=== PATIENT | female | born 1995 | race Caucasian/White ===

== ENCOUNTER 2019-03-16 07:04 | Outpatient (CLI) | payer MEDICAID, SELFPAY ==
[2019-03-16 07:23] VITALS: BMI 35.6
[2019-03-16 07:25] VITALS: TEMP 36.7
[2019-03-16 07:39] VITALS: BP 114/72; PULSE 88
[2019-03-16 07:56] VITALS: BP 101/59; PULSE 96
[2019-03-16 08:26] VITALS: BP 104/66; PULSE 92
[2019-03-16 08:31] LABS: Bilirubin Urine Neg (NEGATIVE); Blood Urine Neg (Negative); Glucose Urine UA Norm (Normal); Ketones Urine Negative (Negative); Leukocyte Esterase Urine Negative (Negative); Nitrate Urine Negative (Negative); Protein Urine Neg (Negative); Urine Appearance SL Hazy (CLEAR); Urine Color Yellow (Yellow); Urobilinogen Urine Norm (Negative)
[2019-03-16 08:36] LABS: Add Urine Culture? No; Bacteria Urine 1+; Mucus Urine TRACE; RBC Urine 0-4 /hpf (0-2); Squamous Epithelial Cell Urine 0-4 (0-5)
[2019-03-16 08:47] VITALS: BP 115/69; PULSE 93
[2019-03-16 09:05] VITALS: BP 115/69; PULSE 93
== END 2019-03-16 08:55 | disposition home or self-care (01) ==
LOC: OPOB 07:14 → OBGYN 08:48 → OPOB 03-17 07:45
PROVIDERS: Family Provider Family Medicine; Visit Provider Family Medicine
DX: O26.899 Other specified pregnancy related conditions, unspecified trimester (principal); Z3A.00 Weeks of gestation of pregnancy not specified; R10.9 Unspecified abdominal pain
CPT/HCPCS: 59025; 81001; 99211

== ENCOUNTER 2019-03-30 04:57 | Inpatient (IN) | payer MEDICAID, SELFPAY ==
[2019-03-30] VITALS (28 sets, daily range): BP systolic 86–121; BP diastolic 44–77; PULSE 67–99; RESP 16–20; TEMP 36.3–37.1; O2SAT 96–100; BMI 35.6
[2019-03-30 06:04] LABS: Basophils % 0.4 %; Eosinophils # 0.1 10^3/uL (0.0-0.8); Eosinophils % 1.3 %; Hematocrit 34.2 % (37.0-47.0); Hemoglobin 10.9 g/dL (11.5-15.3); Lymphocytes # 1.7 10^3/uL (0.8-4.8); Lymphocytes % 22.3 %; Mean Corpuscular HGB Conc 31.9 g/dL (30.0-36.0); Mean Corpuscular Hemoglobin 27.7 pg (28.0-34.0); Mean Platelet Volume 11.6 fL (7.4-10.4); Monocytes # 0.5 10^3/uL (0.2-0.9); Monocytes % 6.9 %; Neutrophils # 5.1 10^3/uL (1.8-7.7); Nucleated Red Blood Cells % 0 %; Platelet Count 210 10^3/cmm (130-400); Red Blood Count 3.93 10^6/uL (4.1-5.3); White Blood Count 7.5 10^3/uL (4.0-10.0)
[2019-03-30] MEDS: citric acid-sodium citrate 30 mL UDC PO (06:52)
[2019-03-30] MEDS: metoclopramide 5 mg/mL SDV 2 mL 10 MG IVP (06:52)
[2019-03-30] MEDS: famotidine 20 mg/2 mL INJ IVP (06:52)
--- NOTE | 2019-03-30 07:11 | P.HP_ITS ---
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 Her was unremarkable. Her labs were also unremarkable. Her blood type is a positive. She is rubella immune. She was GBS negative. Her glucose screen was negative. Labs Rubella: Immune RPR: Negative GBS: Negative Review of Systems General: Reports: 10 or more systems reviewed and unremarkable except in HPI and below Const: Reports: fatigue; Denies: fever Eyes: Denies: change in vision Card: Denies: chest pain Musc: Reports: back pain Gio/Lymph: Denies: easy bruising Medications/Allergies Home Medications Medication Instructions Recorded Confirmed Last Taken Type ferrous sulfate 1 mg PO DAILY 03/30/19 03/30/19 03/29/19 12:00 History vit [id number] 1 tab PO DAILY 03/30/19 03/30/19 03/29/19 12:00 History [ Vitamin] Allergies Allergy/AdvReac Type Severity Reaction Status Date / Time No Known Allergies Allergy Verified 03/30/19 06: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 Surgical History (Updated 03/30/19 @ 07:14 by Rober Bolton MD) Previous section Social History (Updated 03/30/19 @ 07:15 by Rober Bolton MD) Smoking and tobacco status: never smoked Alcohol intake: never Substance/Drug Use: never Household members: spouse and children Vitals/I&O/Wt Last Vital Signs Temp 98.6 F 03/30/19 05:45 Resp 20 H 03/30/19 05:45 Weight last 48 hrs Weight 189 lb Physical Exam Const: COMMON NORMALS: oriented x3 and alert HENMT: COMMON NORMALS: moist oral mucous membranes HEAD & SCALP: normal to inspection Chest: COMMONS NORMALS: inspection of chest normal Resp: COMMON NORMALS: clear to auscultation bilaterally AUSCULTATION: clear to auscultation bilaterally Cardio: COMMON NORMALS: regular rate and regular rhythm RATE: regular rate RHYTHM: regular rhythm GI: INSPECTION: Yes normal to inspection and Yes other (Gravid) Extremity: COMMON NORMALS: normal to inspection GENERAL: Yes edema (Trace) Neuro: COMMON NORMALS: oriented x3, moves all extremities and no sensory deficits noted SENSORIUM/ORIENTATION: Yes alert Psych: COMMON NORMALS: mental status grossly normal Skin: COMMON NORMALS: no rashes or lesions noted GENERAL SKIN EXAM: no rashes or lesions noted Data : 03/30/19 21:53 A&P Assessment and plan (1) 39 weeks gestation of : The patient presents for a repeat section. We discussed the risks of bleeding, infection, and damage to intra-abdominal organs. We are still working out the exact time of the due to a scheduling snafu with anesthesia. Status: Acute Code(s): Z3A.39 - 39 weeks gestation of Attestations Medical Necessity Statement*: I anticipate routine and post C- section care. Coding Level of Care Code Acute [employer] for [facility] Fwd Exam Detailed Diagnoses 39 weeks gestation of Z3A.39
--- NOTE | 2019-03-30 10:08 | PM.OP ---
Operative Report Date of procedure: March 30, 2019 Pre-op Diagnosis: IUP, previous lower transverse section, 39 weeks EGA Post-op diagnosis: same Procedure Done: Lower transverse section Specimens removed/disposition: 1. Male with a weight of 9 pounds 8 ounces and Apgars of 8 and 9 2. Placenta with a three-vessel cord delivered intact Complications: None Condition: stable Brief History: Refer to history and physical Procedure: The patient was brought back to the operating room where she was prepped and draped in usual sterile fashion. Anesthesia was found to be adequate. A lower transverse skin incision was then made with a #10 blade. I then dissected down to the underlying subcutaneous tissue until arriving at the prerectal fascia. The fascia was then nicked with the scalpel bilaterally. The fascial incisions were then carried laterally with Jett scissors. Attention was then turned to the superior aspect of the incision which was grasped with kochers and tented up away from the underlying rectus abdominis muscles. The muscles were then dissected away from the fascia manually, and later with Jett scissors. Attention was then turned to the inferior aspect of the incision, and the fascia was dissected away from the underlying muscle in similar fashion. The rectus abdominis muscles were then spread manually. The peritoneum was entered manually. Excellent visualization of the uterus was noted. A lower transverse uterine incision was then made with a #10 blade. Upon arriving at the intrauterine cavity, the uterine incision was then extended manually. The infant was noted to be in vertex position. Due to the large size of the head, I difficulty delivering the baby. As result I use a a soft cup Kiwi vacuum. The baby was delivered about 30 seconds after placing the vacuum on the infant's head. After delivery of the head, the mouth and nose were suctioned at the site of the incision. There was no meconium. There was no nuchal cord. The remainder of the body was then delivered and placed on the abdomen. The cord was cut and clamped. The baby was then handed to the waiting nurse. The placenta was removed intact. The uterus was externalized. The intrauterine cavity was cleansed of any remaining debris. The uterine incision was reapproximated in 2 layers. The first layer was performed with 0 Vicryl in a running locked stitch. The second layer was an imbricating stitch also using 0 Vicryl. The uterus was replaced into the abdomen. The peritoneum was then irrigated with warm saline. I reexamined the uterine incision and found it to be hemostatic. The rectus abdominis muscles were then reapproximated using 0 Vicryl in a running stitch. The fascia was then reapproximated using 0 Vicryl in running stitch. The subcutaneous tissue was reapproximated using 0 Vicryl in a running stitch. The skin was reapproximated using yaa. A sterile dressing was placed. All counts were correct x2. Both the mother and baby were in stable condition.
[2019-03-30] MEDS: ketorolac 30 mg/mL INJ IVP ×2 (11:15→16:40)
[2019-03-30] MEDS: ondansetron 2 mg/ML SDV 2 mL 4 MG IVP ×2 (11:15→12:45)
[2019-03-30] MEDS: dextrose 5%-lactated ringers 1,000 ML 125 ML IV ×2 (11:15→19:29)
--- NOTE | 2019-03-30 12:09 | PC.NURSE ---
Pt moved from OB OR to room 206-2 via bed. Oriented to room/call light. Instructed not to get out of bed without assistance, nothing to eat or drink unless approved by staff. Plan of care discussed. Family into room. Pt denies needs or pain at this time.
[2019-03-30] MEDS: metoclopramide 5 mg/mL SDV 2 mL IVP (14:29)
--- NOTE | 2019-03-30 16:27 | PC.NURSE ---
pt up to chair without difficulty. bandar care performed. pt c/o some dizziness when first standing, but that did pass. chicken broth given.
[2019-03-30 22:04] LABS: Hematocrit 33.1 % (37.0-47.0); Hemoglobin 10.6 g/dL (11.5-15.3); Mean Corpuscular Hemoglobin 28.1 pg (28.0-34.0); Mean Corpuscular Volume 87.8 fL (81-99); Platelet Count 195 10^3/cmm (130-400); Red Blood Count 3.77 10^6/uL (4.1-5.3); White Blood Count 11.7 10^3/uL (4.0-10.0)
[2019-03-31 00:45] VITALS: BP 99/63; PULSE 87; RESP 16; TEMP 36.9; O2SAT 96
[2019-03-31 04:00] VITALS: BP 103/60; PULSE 82; RESP 16; TEMP 36.6; O2SAT 97
--- NOTE | 2019-03-31 07:06 | PM.OBGYDC ---
Discharge Providers CATEGORY MANAGER Date of Admission: 03/30/19 04:57 Date of Discharge: 03/31/19 Attending Provider at Admission: Rober Bolton MD Attending Provider at Discharge: Rober Bolton MD Primary Care Provider: Rober Bolton MD Diagnoses at Discharge Discharge Diagnosis (1) 39 weeks gestation of : Status: Acute Reason for Visit Reason for Visit: Reason For Visit: Hospital Course Hospital Course: The patient presented to the hospital for a repeat section. Her section was unremarkable. She delivered a healthy male infant without problems. Her course was remarkable for having nausea for several hours after her . Otherwise, her bleeding was minimal. Her pain was well controlled. She is breast-feeding well. She has passed gas. Her diet has been advanced and has been tolerated well. There have been no concerns. Information Peripartum Data: Delivery Method: Section Physical Exam Narrative: EXAM NARRATIVE: She is in no acute distress Lungs are clear auscultation bilaterally Her heart has a regular rate and rhythm Her fundus is below the umbilicus and firm Her dressing is clean, dry and intact Her extremities have trace edema Urinary Catheter Management^: Rudd: Cath Placed During This Visit: yes Urethral Indwelling: No Reason for Continuing Indwelling Catheter: Perioperative Use in Selected Surgeries Urinary Catheter Date of Insertion: 03/30/19 Urinary Catheter Time of Insertion: 09:10 Discharge Data Data Completed and Pending: Labs from last 24 hours 03/30/19 21:53 WBC 11.7 H RBC 3.77 L Hgb 10.6 L Hct 33.1 L MCV 87.8 MCH 28.1 MCHC 32.0 RDW 18.0 H Plt Count 195 MPV 11.0 H Vitals: Last Vital Signs Temp 97.9 F 03/31/19 04:00 Pulse 82 03/31/19 04:00 Resp 16 03/31/19 04:00 BP 103/60 03/31/19 04:00 Pulse Ox 97 03/31/19 04:00 Discharge Plan Discharge Patient Disposition: Home, Self-Care Condition: Stable Prescriptions: New hydrocodone-acetaminophen 5-325 mg Tablet 1 - 2 tab PO Q4H PRN (Reason: Moderate To Severe Pain) Qty: 10 RF: 0 docusate sodium 100 mg Capsule 100 mg PO BID Qty: 20 RF: 0 ibuprofen 800 mg Tablet 800 mg PO TID Qty: 30 RF: 0 Continued Vitamin 27 mg iron- 800 mcg Tablet 1 tab PO DAILY RF: 0 ferrous sulfate 325 mg (65 mg iron) Tablet 1 mg PO DAILY RF: 0 Discharge Orders: Discharge Order (Routine); Ordered 03/31/19 Ordered By: Rober Bolton Referrals: Rober Bolton MD [Primary Care Provider] - 4-7 days Discharge Diet: Regular Discharge Activity: Limit activity as instructed Discharge Attestations CATEGORY MANAGER Time Spent in Discharge Care*: less than 30 min Coding Level of Care Code 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
[2019-03-31] MEDS: prenatal vitamin Capsule 1 CAP PO (08:32)
[2019-03-31] MEDS: ferrous sulfate EC 325 mg Tablet PO (08:32)
[2019-03-31] MEDS: docusate sodium 100 mg Capsule PO (08:32)
[2019-03-31 10:17] VITALS: BP 97/59; PULSE 82; RESP 16; TEMP 36.9; O2SAT 97
--- NOTE | 2019-03-31 13:48 | ANE.PACU2 ---
 Inpatient post-anesthesia follow up: Airway intact: Yes Vital signs: Temperature 98.5 F Pulse Rate 82 Respiratory Rate 16 Blood Pressure 97/59 Pulse Oximetry 97 Oxygen Delivery Me thod Room Air Oxygen Flow Rate Fraction of Inspir ed Oxygen Hydration adequate: Yes Nausea and vomiting: No Pain level: 1 Mental status: Baseline
[2019-03-31 16:28] VITALS: BP 99/64; PULSE 91; RESP 17; TEMP 36.5; O2SAT 99
[2019-03-31 17:57] VITALS: BP 111/71; PULSE 100; RESP 19; TEMP 36.6; O2SAT 98
== END 2019-03-31 18:40 | disposition home or self-care (01) | DRG 788 ==
PROVIDERS: Admitting Provider Family Medicine; Family Provider Family Medicine; PCP Family Medicine; Visit Provider Family Medicine
PROC: 10D00Z1 Extraction of Products of Conception, Low, Open Approach (ICD-10-PCS; CPT 59514; principal; 2019-03-30 07:00)
DX: O34.211 Maternal care for low transverse scar from previous cesarean delivery (principal); N85.8 Other specified noninflammatory disorders of uterus; Z3A.39 39 weeks gestation of pregnancy; Z37.0 Single live birth
CPT/HCPCS: 12345; 36415; 51702; 59025; 59409; 85025; 85027; 96374; 96375; J0690; J1885; J2274; J2405; J2590; J2765; J3490